=== PATIENT | male | born 1995 | race Caucasian/White ===

== ENCOUNTER 2019-06-29 17:04 | Emergency (ER) | payer BC, SELFPAY ==
[2019-06-29 16:55] VITALS: BP 143/125; PULSE 123; RESP 26; TEMP 36.8; O2SAT 99
--- NOTE | 2019-06-29 17:02 | ED.GENADULT ---
HPI - General Adult General Chief complaint: Seizure Stated complaint: SZ, confusion Source: family and EMS Mode of arrival: EMS Limitations: clinical condition History of Present Illness HPI narrative: Patient is a 23-year-old male with a history of seizure disorder, taking carbamazepine, Keppra, clonazepam as needed who presents for evaluation of agitation and aggression. Police Department, EMS were called to patient's father's house work he is currently residing, for aggressive outburst. Per father, reported to EMS that this is how the patient's seizure activity manifest itself, including the postictal state where he is very aggressive. No tonic-clonic activity, loss of consciousness witnessed by family. At the time of arrival for EMS, patient was aggressive, destroying property at his father's house, patient required intramuscular Versed and Haldol for agitation for safety of EMS for transport. Patient at the time of arrival is oriented to person and place and to time. He is awake and alert. Patient is not confused, he is tearful. He denies any head, chest or abdominal pain. Per mom, she states that she does not believe he has missed any of his seizure medications. He is typically seen at [facility] for his seizure issues. He has a history of psychiatric disorder which they believe also influences his seizures. This is very typical of his aggressive outbursts. No recent illnesses. No recent cough, cold, fevers. Patient does have a history of intermittent drug use including methamphetamine use. Related Data Allergies Allergy/AdvReac Type Severity Reaction Status Date / Time clonazepam Allergy Mild Verified 03/10/09 19:04 Review of Systems Review of Systems: Narrative: CONSTITUTIONAL: Denies fever, chills, or sweats. EYES: Denies visual changes, redness, or discharge. ENT: Denies rhinorrhea, congestion, sore throat, or otalgia. CARDIOVASCULAR: Denies chest pain, palpitations, or edema. RESPIRATORY: Denies cough or dyspnea. GASTROINTESTINAL: Denies abdominal pain, nausea, vomiting, or diarrhea. GENITOURINARY: Denies dysuria or hematuria. SKIN: Denies rash or itching. MUSCULOSKELETAL: Denies back pain, joint pain, or myalgia. NEUROLOGIC: Denies headache, numbness, or weakness. [facility] Past Medical History Medical History (Updated 06/29/19 @ 18:09 by Joy Vences MD) Drug abuse, episodic use Seizure Surgical History Surgical History (Updated 06/29/19 @ 17:16 by Joy Vences MD) No pertinent past surgical history Family History Family History (Updated 06/29/19 @ 17:15 by Joy Vences MD) Father No problems noted. Social History Social History (Updated 06/29/19 @ 17:15 by Joy Vences MD) Smoking status: Current some day smoker Tobacco type: cigarettes and e-cigarettes Alcohol intake: current Substance use: current Substance use type: marijuana and methamphetamine Gender identity (if verbalized by the patient): Male Exam Narrative: Exam Narrative: GENERAL: Awake, alert, tearful HEAD: Normocephalic, atraumatic. EYES: PERRLA and EOMI. ENT: Nares clear, no rhinorrhea or epistaxis. Mucous membranes moist. NECK: Supple. CHEST: No respiratory distress, breathing even and non labored HEART: Tachycardic rate rate, sinus rhythm ABDOMEN:Non distended, non tender EXTREMITIES: Normal range of motion. No edema. SKIN: Warm, dry, no rash. NEURO:No focal deficits. Alert and oriented x3. Finger to nose intact bilaterally. EOMs intact without nystagmus. No facial droop/asymmetry noted bilaterally. Grimace intact. Intact sensation in face. Hearing intact bilaterally. Shoulder shrug intact. Strength 5/5 bilateral upper extremities. Strength 5/5 bilateral lower extremities. Reflexes 2+ patellar. Heel to arguello intact bilaterally. Ambulatory with a narrow base, steady gait, no ataxia. Course Course Emergency Course: Patient is a 23-year-old with a history of seizure disorder, on car
[2019-06-29 17:12] VITALS: PULSE 123
[2019-06-29] MEDS: MIDAZOLAM HCL 2 MG/2 ML VIAL IM (17:15)
--- NOTE | 2019-06-29 18:01 | PC.NURSE ---
1655 Pt. arrived to removed via EMS 1700 handcuffs removed 1705 Pt. continues to get out of bed, wanting to leave, Pt. is agitated, clinching jaw and flexing upper body. Pt. redirected to sit back in bed by staff 1710 Pt. given 2mg IM versed in their left deltoid per verbal order readback from EDP. 1715 room modified for Pt. safety, sitter initiated. 1730 Pt. still agitated, getting out of bed, redirected by staff 1745 family refusing blood work and treatment. Pt. currently AOx4 at this time. EDP notified 1750 EDP ok with Pt. signing AMA, EDP talked with Pt. and made aware of all risks for leaving 1602 Pt. signs out AMA and ambulated out of ED with their belongings with mother. Pt. continues to deny any homicidal or suicidal ideation.
[2019-06-29 18:02] VITALS: BP 143/90; PULSE 112; RESP 22; O2SAT 99
== END 2019-06-29 18:02 | disposition left against medical advice (07) ==
PROVIDERS: Emergency Provider Emergency Medicine
DX: R45.6 Violent behavior (principal); F17.210 Nicotine dependence, cigarettes, uncomplicated
CPT/HCPCS: 96372; 99283; J1630; J2250

== ENCOUNTER 2019-08-23 10:42 | Observation (INO) | payer BC, SELFPAY ==
[2019-08-23] VITALS (10 sets, daily range): BP systolic 113–144; BP diastolic 59–111; PULSE 71–135; RESP 18–28; TEMP 36.1–37.4; O2SAT 93–100; BMI 23.1
--- NOTE | ~2019-08-23 | XR_ITS ---
EXAMINATION: XR chest 1V portable 08/23/2019 11:08 INDICATION: Seizure. Fever. PROCEDURE: AP portable chest COMPARISON: No prior studies for comparison. FINDINGS: The lungs are clear. The cardiomediastinal silhouette is within normal limits. There are no pleural effusions. There is no pneumothorax suspected. IMPRESSION: 1: NO ACUTE CARDIOPULMONARY DISEASE. Reviewed, dictated and finalized at location A.
--- NOTE | ~2019-08-23 | CT_ITS ---
EXAMINATION: CT brain wo con DATE: 08/23/2019 11:35 INDICATION: Epilepsy. Seizure. TECHNIQUE: Computed tomography (CT) of the head was performed without intravenous contrast. Sagittal and coronal reconstructions were performed. The mA was adjusted according to patient size. Iterative reconstruction technique was employed. The dose-length product was 605.33 mGy-cm. COMPARISON: head CT dated 09/28/2014 FINDINGS: No acute intracranial hemorrhage, acute infarction or abnormal extra axial fluid collection. Ventricl es are normal and symmetric. No mass/mass effect. The orbits, paranasal sinuses and mastoid air cells are normal. IMPRESSION: 1. Normal brain. No acute intracranial process. Reviewed, dictated and finalized at location A.
--- NOTE | 2019-08-23 10:55 | ED.SEIZURE ---
HPI - Seizure General Chief Complaint: Seizure Stated Complaint: . Time Seen by Provider: 08/23/19 10:45 Source: RN notes reviewed History of Present Illness HPI Narrative: Patient presents emergency department from home by private vehicle for seizure. Patient presents in tonic-clonic seizure. Per the patient's father who dropped him off patient with history of seizures was given his rescue medication with minimal relief. States the patient has been seizing for approximately 30 minutes. Per the father he is unsure of the patient's regular medications But does state the patient has been taking his medications as prescribed Review of Systems Review of Systems: ROS unobtainable: Yes unobtainable due to medical condition (Recurrent seizing) PMFSH Past Medical History Medical History Drug abuse, episodic use Seizure Surgical History Surgical History (Updated 06/29/19 @ 17:16 by Joy Vences MD) No pertinent past surgical history Family History Family History (Updated 06/29/19 @ 17:15 by Joy Vences MD) Father No problems noted. Social History Social History Smoking status: Current some day smoker Tobacco type: cigarettes and e-cigarettes/vaping Alcohol intake: current Substance use: current Substance use type: marijuana and methamphetamine Gender identity (if verbalized by the patient): Male Exam Narrative: Exam Narrative: General: Currently seizing in bed with tonic-clonic activity EYES: PERRL HEENT: Normocephalic, atraumatic, OMM RESPIRATORY: No respiratory distress Clear to auscultation bilaterally with no rhonchi wheezing or rales. CARDIOVASCULAR: Tachycardic and regular without murmurs rubs or gallops. ABDOMINAL: Soft, nontender, nondistended, no rebound or guarding MUSCULOSKELETAl: No clubbing, cyanosis or edema. NEURO: Currently with seizure activity SKIN:: Warm, dry. No rashes lesions or abrasions Course Course Emergency Course: Patient given Ativan 2 mg in the ED with improvement of seizure activity Called and discussed with Dr. nicolas presentation work-up. At this time recommends patient loaded with 1 g of Keppra Patient's mother is now present. States patient is on Keppra 1500 mg twice daily Patient is becoming more awake currently not answering questions but is able to follow simple commands and will mumble to questions Discussed Dr. Williamson presentation work-up agrees with consult at this time with patient remain on his Keppra 1500 mg twice daily Cussed with Dr. Toney presentation work-up. Agrees with admission at this time Discussed with patient and family results of workup and diagnosis. Discussed need for admission. Patient and family understand and agree to current treatment plan Patient is now more awake and alert currently ANO x3. He denies any pain at this time states he has been taking medications as prescribed Vital Signs Vital signs: Vital Signs Pulse Rate 135 H 08/23/19 10:56 Respiratory Rate 28 H 08/23/19 10:56 Blood Pressure 144/111 H 08/23/19 10:56 Pulse Oximetry 96 08/23/19 10:56 Pulse Rate 116 H 08/23/19 10:58 Respiratory Rate 21 H 08/23/19 10:58 Blood Pressure 144/111 H 08/23/19 10:58 Pulse Oximetry 93 08/23/19 10:58 MDM - Seizure Lab Data Result diagrams: 08/23/19 11:21 08/23/19 11:21 Labs: Lab Results 08/23/19 08/23/19 08/23/19 Range/Units 11:21 11:21 11:21 WBC 5.2 (4.5-10.0) K/mm3 RBC 4.61 (4.6-6.20) M/mm3 Hgb 14.0 (14.0-18.0) g/dL Hct 42.1 (42.0-52.0) % MCV 91.3 (80-100) fl MCH 30.4 (26-34) pg MCHC 33.3 (32-36) g/dl RDW 12.8 (11.5-14.5) % Plt Count 205 (150-375) k/mm3 MPV 10.2 (7.4-10.4) fl Immature Gran % (Auto) 1.5 H (0-0.5) % Neut % (Auto) 68.6 (45.5-73.1) % Lymph % (Auto) 21.8 (18.3-44.2) % Mo
[2019-08-23] MEDS: levETIRAcetam 1000MG/NACL100ML 1,000 MG/100 ML BAG 400 MG IVPB (10:56)
[2019-08-23] MEDS: SODIUM CHLORIDE 0.9% IV 1,000 ML 999 ML IV CONT (10:56)
--- NOTE | 2019-08-23 11:26 | ECG_ITS ---
Measurements Intervals [place] Rate: 120 P: 58 KS: 158 QRS: 64 QRSD: 102 T: 59 QT: 319 QTc: 451 Interpretive Statements SINUS TACHYCARDIA INCOMPLETE RIGHT BUNDLE BRANCH BLOCK ABNORMAL ECG Electronically Signed On 08-23-2019 11:44:46 CDT by Sean Harper D.O.
[2019-08-23 11:28] LABS: Basophils Percent Auto 0.6 % (0.2-1.2); Eosinophils Percent Auto 0.6 % (0-4.4); Hematocrit 42.1 % (42.0-52.0); Immature Granulocyte Absolute 0.08 K/mm3 (0.00-0.031); Immature Granulocyte Percent A 1.5 % (0-0.5); Lymphocytes Absolute Auto 1.13 K/mm3 (0.9-3.2); Lymphocytes Percent Auto 21.8 % (18.3-44.2); Mean Corpuscular HGB Conc 33.3 g/dl (32-36); Mean Corpuscular Hemoglobin 30.4 pg (26-34); Mean Corpuscular Volume 91.3 fl (80-100); Mean Platelet Volume 10.2 fl (7.4-10.4); Monocytes Absolute Auto 0.4 K/mm3 (0.1-0.6); Monocytes Percent Auto 6.9 % (2.6-8.5); Neutrophils Absolute Auto 3.6 K/mm3 (1.3-6.7); Neutrophils Percent Auto 68.6 % (45.5-73.1); Platelet Count Result 205 k/mm3 (150-375); Red Blood Count 4.61 M/mm3 (4.6-6.20); Red Cell Distribution Width 12.8 % (11.5-14.5); White Blood Count 5.2 K/mm3 (4.5-10.0)
--- NOTE | 2019-08-23 11:33 | PC.NURSE ---
pt to CT at this time
[2019-08-23 11:40] LABS: Alanine Aminotransferase 16 U/L (4-50); Albumin Level 4.1 g/dL (3.5-5.1); Alkaline Phosphatase 94 U/L (38-126); Aspartate Amino Transferase 22 U/L (17-59); Bilirubin,Total < 0.1 mg/dL (0.2-1.3); Blood Urea Nitrogen 11 mg/dL (9-20); Calcium 8.4 mg/dL (8.4-10.2); Carbon Dioxide 23 mmol/L (22-30); Chloride 103 mmol/L (98-107); Creatine Kinase 92 U/L (55-170); Estimated Glomerular Filt Rate > 60; Ethanol < 10 mg/dL (<10); Glucose 149 mg/dL (75-110); Potassium 3.6 mmol/L (3.4-5.0); Sodium 138 mmol/L (137-145)
[2019-08-23 12:09] LABS: Add Urine Microscopic? YES; Appearance Urine Clear (Clear); Bilirubin Urine Negative (Negative); Blood Urine Negative (Negative); Color Urine Straw (Yellow); Glucose Urine UA Negative (Negative); Ketones Urine Negative (Negative); Leukocyte Esterase Ur Negative LEU/UL (Negative); Mucus Urine Rare /lpf; Nitrate Urine Negative (Negative); Protein Urine 1+ mg/dL (Negative); RBC Urine 0-2 /hpf (0-2); Specific Grav Ur 1.015 (1.001-1.035); Urobilinogen Urine Negative mg/dL (<2.0); WBC Urine 0-3 /hpf
[2019-08-23 12:27] LABS: Amphetamine Screen Urine Negative (Negative); Barbiturate Screen Urine Negative (Negative); Benzodiazepines Screen Urine Negative (Negative); Cannabinoid Screen Urine Positive (Negative); Cocaine Screen Urine Negative (Negative); Methadone Screen Urine Negative (Negative); Opiate Screen Urine Negative (Negative); Phencyclidine Screen Urine Negative (Negative)
--- NOTE | 2019-08-23 13:44 | ADMGEN ---
This patient, Ganesh Spence, was admitted to IMU Room 207-01. Patient/family oriented to hospital policies and general routines including ID bracelet, bed and alarms, visiting hours, pain management, procedures, bathroom and other care routines, personal items, smoking policy, room service/diet, and visiting hours. Valuables list has been completed. Information on how to activate the Rapid Response Team has been discussed. Patient/Family are encouraged to report perceived risks to care and to ask questions if they do not understand what they are told or what they should do.
[2019-08-23] MEDS: SODIUM CHLORIDE 0.9% IV 1,000 ML 125 ML IV CONT ×2 (14:35→21:20)
--- NOTE | 2019-08-23 17:51 | PM.IMHP ---
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 The patient tells me that he has been taking his seizure medicine without difficulty but then his been drinking 2-3 mixed drinks every day after work. 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 The patient came to the emergency room with a tonic-clonic seizure. The father had dropped him off in the emergency room. Patient sees for about 30 minutes. Patient was given IV bolus fluid and Keppra IV. Neurology has been consulted. CT of the head was read as normal brain no acute intracranial process. He was positive for cannabis. Date of service 08/23/2019 Review of Systems Review of Systems: All systems reviewed & are unremarkable except as noted in HPI and below Constitutional: Constitutional: Reports as per HPI and Reports no additional constitutional complaints Eyes: Eyes: Reports as per HPI and Reports no additional eye complaints ENT: Reports system reviewed and no additional complaints, except as documented and Reports Normal hearing present Cardiovascular: Cardiovascular: Reports no additional cardiovascular complaints Respiratory: Respiratory: Reports no additional respiratory complaints and Reports no additional respiratory complaints Gastrointestinal: Gastrointestinal: Reports as per HPI and Reports no additional gastrointestinal complaints Musculoskeletal: Musculoskeletal: Reports no additional musculoskeletal complaints Integumentary/Breasts: Skin/Breast: Reports system reviewed and no additional complaints, except as docu and Reports as per HPI Neurologic: Reports system reviewed and no additional complaints, except as documented, Reports as per HPI and Reports Normal hearing present Psychiatric: Psychiatric: Reports no additional psychiatric complaints and Reports as per HPI Endocrine: Endocrine: Reports no additional endocrine complaints Hematologic/Lymphatic: Hematologic/Lymphatic: Reports no additional hematologic/lymphatic complaints Allergic/Immunologic: Allergic/Immunologic: Reports no additional allergic/immunologic complaints [facility] Past Medical History Medical History (Updated 08/23/19 @ 17:58 by Mary Lou Bradshaw NP) Drug abuse, episodic use Positive for cannabis and use meth 1 month ago Seizure Surgical History Surgical History (Updated 06/29/19 @ 17:16 by Joy Vences MD) No pertinent past surgical history Family History Family History Father No problems noted. Social History Social History (Updated 08/23/19 @ 18:01 by Mary Lou Bradshaw NP) Social History: The patient lives with his mom. He has no children he is single. 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 He is a full code. He stated he last used meth about a month ago. He has 2-3 alcoholic drinks every day after work. Tobacco type: cigarettes Alcohol intake: current Drinks per week: 12 Substance use: current Substance use type: marijuana Other substance usage details: smokes a couple of times a week Last use: 08/22/2019 Gender identity (if verbalized by the patient): Male Spiritual care concerns: No Meds Home Medications and Allergies Home Medications Medication Instructions Recorded Confirmed Type carbamazepine [Tegretol] 400 mg PO Q12H 08/23/19 08/23/19 History levetiracetam [Keppra] 1,250 mg PO BID 08/23/19 08/23/19 History oxcarbazepine 600 mg PO BID 08/23/19 08/23/19 History Allergies Allergy/AdvReac Type Severity Reaction Status Date / Time No Known Allergies Allergy Verified 08/23/19 13:54 Vital Signs Vital Signs - 24 hr 08/23/19 10:56 08/23/19 10:58 08/23/19
[2019-08-23] MEDS: carBAMazepine 200 MG TABLET 400 MG PO (21:19)
[2019-08-23] MEDS: levETIRAcetam 1500MG/NACL100ML 1,500 MG/100 ML BAG 400 MG IVPB (21:20)
[2019-08-23] MEDS: OXcarbazepine 300 MG TABLET 600 MG PO (21:20)
[2019-08-24] VITALS: PULSE 76
[2019-08-24 02:00] VITALS: PULSE 73
[2019-08-24 04:00] VITALS: BP 110/68; PULSE 69; RESP 18; TEMP 36.6; O2SAT 99
[2019-08-24 05:00] LABS: Basophils Percent Auto 0.3 % (0.2-1.2); Eosinophils Absolute Auto 0.1 K/mm3 (0-0.3); Eosinophils Percent Auto 0.5 % (0-4.4); Hematocrit 40.4 % (42.0-52.0); Hemoglobin 13.4 g/dL (14.0-18.0); Immature Granulocyte Absolute 0.04 K/mm3 (0.00-0.031); Immature Granulocyte Percent A 0.4 % (0-0.5); Lymphocytes Absolute Auto 1.75 K/mm3 (0.9-3.2); Lymphocytes Percent Auto 17.7 % (18.3-44.2); Mean Corpuscular HGB Conc 33.2 g/dl (32-36); Mean Corpuscular Hemoglobin 30.2 pg (26-34); Mean Corpuscular Volume 91.2 fl (80-100); Monocytes Absolute Auto 0.6 K/mm3 (0.1-0.6); Monocytes Percent Auto 6.5 % (2.6-8.5); Neutrophils Absolute Auto 7.4 K/mm3 (1.3-6.7); Neutrophils Percent Auto 74.6 % (45.5-73.1); Platelet Count Result 205 k/mm3 (150-375); Red Blood Count 4.43 M/mm3 (4.6-6.20); Red Cell Distribution Width 12.6 % (11.5-14.5); White Blood Count 9.9 K/mm3 (4.5-10.0)
[2019-08-24 05:17] LABS: Blood Urea Nitrogen 8 mg/dL (9-20); Carbon Dioxide 30 mmol/L (22-30); Chloride 106 mmol/L (98-107); Estimated CRCL calculation 125 ml/min; Estimated Glomerular Filt Rate > 60; Glucose 93 mg/dL (75-110); Potassium 3.8 mmol/L (3.4-5.0); Sodium 136 mmol/L (137-145)
[2019-08-24 05:58] VITALS: PULSE 77
[2019-08-24] MEDS: SODIUM CHLORIDE 0.9% IV 1,000 ML 125 ML IV CONT (06:19)
[2019-08-24 08:00] VITALS: PULSE 57
[2019-08-24] MEDS: levETIRAcetam 1500MG/NACL100ML 1,500 MG/100 ML BAG 400 MG IVPB (08:20)
[2019-08-24] MEDS: OXcarbazepine 300 MG TABLET 600 MG PO (08:21)
[2019-08-24] MEDS: carBAMazepine 200 MG TABLET 400 MG PO (08:22)
[2019-08-24 08:30] VITALS: BP 116/50; PULSE 68; RESP 18; TEMP 36.3; O2SAT 100
--- NOTE | 2019-08-24 09:14 | PM.DS ---
DS: Admitting Diagnosis Admitting Diagnosis Admitting Diagnosis: Epilepsy, unspecified, not intractable, with status epilepticus DS: Discharge Diagnosis Discharge Diagnosis (1) Status epilepticus: Code(s): G40.901 - Epilepsy, unspecified, not intractable, with status epilepticus Status: Acute Assessment and Plan: Patient was brought in after having a reported 30 minutes seizure. Patient has a history of seizures since he was 3 years old after a traumatic brain injury. He reports taking 4 medications twice daily for his seizures He used to see Dr. Strickland neurologist, but for the last few months he has been seen a specialist at [place] who has been making adjustments to his medications and is considering him for a brain surgery. I called Dr. Williamson neurologist to his going to consult on the patient and informed him of the patient. He states if the patient is seizure free, back to his baseline, and since he is on 4 different anti seizure medications he will not make any adjustments. Dr. Williamson recommended him following up with his neurologist at [place] within 7-10 days for further evaluation and to see if further adjustments are needed at that time. I explained this to the patient and he will call his neurologist after discharge for a follow-up within 7-10 days. At this time I feel the patient is stable for discharge. Patient understands and agrees with the plan all questions answered. The nurse called his pharmacy [facility], because the patient states he has been taking 4 medications twice a day. The pharmacist states his medications in our computer are correct. He is supposed to be on Tegretol 400 p.o. q.12, Keppra 1000 mg b.i.d., oxcarbazepine 600 p.o. b.i.d.. The pharmacist states that he last filled his Tegretol in July 2019 but his other medications have not been feeling since March 2019. I will refill his medications in our computer so he has another 30 day prescription. Explained to him the importance of taking his medications as prescribed and following up with his neurologist after discharge. (2) Drug abuse, episodic use: Code(s): F19.10 - Other psychoactive substance abuse, uncomplicated Status: Acute Assessment and Plan: Patient stated he last used meth 1 month. Patient was positive for marijuana. Educated the patient to stop using illegal drugs and drinking alcohol which can cause issues with his seizures. Patient states he understands. DS: Summary Hospital Course Reason for hospitalization: Patient is a 24-year-old man with history of traumatic brain injury at 3 years old which resulted in seizures, who presented to the emergency department after having a seizure. 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 Patient's father reported a possible 30 minutes seizure and was brought to the emergency department. His initial vital signs showed him to be tachycardic at 135 bpm, elevated blood pressure 144/111, increased respiratory rate 28, afebrile with normal oxygenation. Initial labs showed, normal CBC with differential, normal coag panel, normal CMP, normal urinalysis, and urine toxicology screen showed positive for cannabis. Chest x-ray showed no acute cardiopulmonary disease. CT brain showed normal brain with no acute abnormality. Patient was observed overnight with seizure precautions. He did not have any more breakthrough seizures. He was started on IV Keppra. He is feeling well at this time and was going to leave against medical advice. I evaluated the patient and he is alert oriented x4, able to make his own decisions and is feeling back to his baseline. I talked to Dr. Williamson neurology who states that he was not going to make any adjustments to his home medications and just evaluate overnight for breakthrough seizures. Plan is for the patient
== END 2019-08-24 09:37 | disposition home or self-care (01) ==
LOC: ANHED 12:05 → ANHIMU 12:30
PROVIDERS: Admitting Provider Hospitalist; Emergency Provider Emergency Medicine; PCP Psychiatry & Neurology Neurology; Visit Provider Family Medicine
DX: G40.901 Epilepsy, unspecified, not intractable, with status epilepticus (principal); F19.10 Other psychoactive substance abuse, uncomplicated; Z87.820 Personal history of traumatic brain injury; F17.210 Nicotine dependence, cigarettes, uncomplicated; F12.90 Cannabis use, unspecified, uncomplicated
CPT/HCPCS: 36415; 51701; 70450; 71045; 80048; 80053; 80307; 81001; 82550; 85025; 93005; 96361; 96365; 96366; 96376; 99285; A9270; G0378; J1953; J7030

== ENCOUNTER 2023-04-06 23:00 | Emergency (ER) | payer OTHER, SELFPAY ==
--- NOTE | ~2023-04-06 | CT_ITS ---
Non-contrast Head CT History: Headache COMPARISON: 08/23/2019 Technique: Axial non-contrast imaging of the brain was performed. Dose reduction technique was used on this scan by utilizing automated exposure control and iterative reconstruction technique. The dose -length product (DLP) was 681.00 mGy-cm. Findings: There is no evidence of intracranial hemorrhage, mass lesion, or acute infarct. There is p ostoperative encephalomalacia in the anterior left temporal lobe with associated left temporal cranio alexander. The ventricles and subarachnoid spaces are otherwise normal in size. The calvarium appears nor mal. The visualized paranasal sinuses and mastoid air cells are clear. Impression: No acute abnormality. Suspected postoperative encephalomalacia of the anterior left temporal lobe with overlying left tempo ral craniotomy. Correlate with surgical history. Reviewed, dictated and finalized at [facility]. [facility] Impression: No acute abnormality. Suspected postoperative encephalomalacia of the anterior left temporal lobe wit h overlying left temporal craniotomy. Correlate with surgical history.
[2023-04-06 23:02] VITALS: BP 165/84; PULSE 100; RESP 22; TEMP 36.4; O2SAT 100
--- NOTE | 2023-04-06 23:42 | PC.NURSE ---
Pt to CT at this time.
--- NOTE | 2023-04-06 23:50 | ED.GENADULT ---
HPI - General Adult General Chief complaint: Headache Stated complaint: headache, left side of head Time Seen by Provider: 04/06/23 23:08 History of Present Illness HPI narrative: Patient is a 27-year-old gentleman who presents to the emergency department with chief complaint of headache. The patient reports that he has prior history of a seizure disorder and had surgery on his brain several years ago for his seizures. The patient reports that he has had some headaches since then and reports that about 5 hours ago he started having pain on the left side of his head patient reports that this is 1 of the worst headaches he has had in his life but not the worst headache patient reports that the light does bother his eyes reports he had a little bit of nausea with this. The patient denies focal neurological deficit Related Data Allergies Allergy/AdvReac Type Severity Reaction Status Date / Time No Known Allergies Allergy Verified 04/06/23 23:55 Review of Systems Review of Systems: A 10 system review of systems was completed on the patient and is negative except for what is stated in the HPI. Nursing and ancillary documentation was reviewed. [facility] Past Medical History Medical History Drug abuse, episodic use Positive for cannabis and use meth 1 month ago Seizure Surgical History Surgical History No pertinent past surgical history Family History Family History Father No problems noted. Social History Social History Social History: The patient lives with his mom. He has no children he is single. 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 He is a full code. He stated he last used meth about a month ago. He has 2-3 alcoholic drinks every day after work. Tobacco type: cigarettes Alcohol intake: current Drinks per week: 12 Substance use: current Substance use type: marijuana Other substance usage details: smokes a couple of times a week Last use: 08/22/2019 Living arrangements: with family Gender identity (if verbalized by the patient): Male Spiritual care concerns: No Exam Narrative: GENERAL: Well-appearing, well-nourished, and in no acute distress. HEAD: Normocephalic, atraumatic. EYES: PERRLA and EOMI. ENT: Nares clear, no rhinorrhea or epistaxis. Mucous membranes moist. NECK: Supple. CHEST: Clear to auscultation. No respiratory distress. HEART: Regular rate and rhythm. No murmur heard. Normal peripheral pulses. ABDOMEN: Soft, nontender, nondistended, normal active bowel sounds. EXTREMITIES: Normal range of motion. No edema. SKIN: Warm, dry, no rash. NEURO: No focal deficits. Alert and oriented x3. PSYCH: Normal mood and affect. Course Vital Signs Vital signs: Vital Signs Temperature 36.4 C 04/06/23 23:02 Pulse Rate 100 04/06/23 23:02 Respiratory Rate 22 H 04/06/23 23:02 Blood Pressure 165/84 H 04/06/23 23:02 Pulse Oximetry 100 04/06/23 23:02 Oxygen Delivery Room Air 04/06/23 23:02 Temperature 36.4 C 04/06/23 23:02 Pulse Rate 100 04/06/23 23:02 Respiratory Rate 22 H 04/06/23 23:02 Blood Pressure 165/84 H 04/06/23 23:02 Pulse Oximetry 100 04/06/23 23:02 Oxygen Delivery Room Air 04/06/23 23:02 Medical Decision Making [facility] Narrative Medical decision making narrative: Differential diagnosis includes intracranial pathology, migraine headache, tension headache CT scan was obtained due to the difference in the normal headaches. This showed no evidence of acute intracranial pathology Patient received typical migraine cocktail and is feeling much better at this time and will be discharged home Vital Signs Vital Signs: V
[2023-04-06] MEDS: diphenhydrAMINE HCl INJ 50 MG/ML VIAL IV PUSH (23:54)
[2023-04-06] MEDS: SODIUM CHLORIDE 0.9% IV 1,000 ML 999 ML IV CONT (23:54)
[2023-04-06] MEDS: METOCLOPRAMIDE HCL INJ 10 MG/2 ML VIAL IV PUSH (23:54)
[2023-04-07 00:24] VITALS: BP 115/62; PULSE 79; RESP 16; O2SAT 100
== END 2023-04-07 00:33 | disposition home or self-care (01) ==
LOC: ANHED 04-07 00:23
PROVIDERS: Emergency Provider Emergency Medicine
DX: R51.9 Headache, unspecified (principal)
CPT/HCPCS: 70450; 96361; 96374; 96375; 99284; J1100; J1200; J2765; J7030

== ENCOUNTER 2023-10-31 16:41 | Emergency (ER) | payer OTHER, SELFPAY ==
[2023-10-31] VITALS (53 sets, daily range): BP systolic 122–182; BP diastolic 68–114; PULSE 89–159; RESP 12–32; TEMP 37–39; O2SAT 68–100
--- NOTE | ~2023-10-31 | XR_ITS ---
XR chest ET placement Ordering provider: Rigoberto Berg MD History: 28 years Male with . SEIZURE ACTIVITY . Comparison: August 26, 2019 FINDINGS: MEDIASTINUM: The cardiac silhouette is slightly enlarged. Endotracheal tube is seen with the tip abov e the kirsty by about 4 cm. Nasogastric tube is seen. Slightly congestive cheikh. LUNGS: No infiltrates, effusions or pneumothorax. OTHER: No free air under the diaphragm. IMPRESSION: Slight cardiomegaly No definite acute cardiopulmonary pathology. Reviewed, dictated and finalized at location A.
--- NOTE | ~2023-10-31 | CT_ITS ---
EXAMINATION: CT brain wo con DATE: 10/31/2023 18:35 INDICATION: Seizure TECHNIQUE: Computed tomography (CT) of the head was performed without intravenous contrast. Sagittal and coronal reconstructions were performed. The mA was adjusted according to patient size. Iterative reconstruction technique was employed. The dose-length product was 605.33 mGy-cm. COMPARISON: head CT dated 04/06/2023 FINDINGS: Again seen is a region of encephalomalacia in the anterior left temporal lobe likely related to prior surgery with overlying left temporal craniotomy. No acute intracranial hemorrhage, acute infarction or abnormal extra axial fluid collection. Ventricles are normal and symmetric. No mass/mass effect. C hanges of bilateral intraocular lens replacement. The orbits, paranasal sinuses and mastoid air cells are normal. IMPRESSION: 1. 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 Correlate with surgical history. 2. Otherwise unremarkable head CT with no acute intracranial process. Reviewed, dictated and finalized at location A. IMPRESSION: 1. Anterior left temporal lobe encephalomalacia with overlying craniotomy sugge sting sequela prior surgery. Correlate with surgical history. 2. Otherwise unremarkable head CT with no acute intracranial process.
--- NOTE | ~2023-10-31 | XR_ITS ---
XR abdomen gastric tube insert Ordering provider: Rigoberto Berg MD History: . SEIZURE ACTIVITY . Comparison: None. FINDINGS/impression: BOWEL: Nasogastric tube is seen in the stomach with the tip near to the duodenum Reviewed, dictated and finalized at location A.
--- NOTE | 2023-10-31 16:39 | ED.GENADULT ---
[facility] - General Adult General Chief complaint: Seizure Stated complaint: SEIZURE Source: family and EMS Mode of arrival: EMS Limitations: clinical condition History of Present Illness HPI narrative: this is a 28-year-old male who presents to the ED via EMS for chief complaint of seizure activity. mother is here with the patient but she did not witness the of seizures. States that he had the history of possible TBI has had seizures in the past. States that he had a neurologic surgery within the last couple years and use taken off of his Keppra last year. He has not had any seizures for over a year. mother states that he had continuous seizure activity for around hours today. It was not specifically noted if he had any periods back to baseline in between. Per EMS they had to give 5 of Valium due to postictal agitation. He continued to be combative so they gave another 5 of Valium. He did not have any seizure-like activity EN route. Related Data Allergies Allergy/AdvReac Type Severity Reaction Status Date / Time No Known Allergies Allergy Verified 04/06/23 23:55 Review of Systems Review of Systems: All systems as dictated in [facility] Past Medical History Medical History Drug abuse, episodic use Positive for cannabis and use meth 1 month ago Seizure Surgical History Surgical History No pertinent past surgical history Family History Family History Father No problems noted. Social History Social History Social History: The patient lives with his mom. He has no children he is single. 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 He does not have a power tax associate attorney for healthcare. He is a full code. He stated he last used meth about a month ago. He has 2-3 alcoholic drinks every day after work. Tobacco type: cigarettes Alcohol intake: current Drinks per week: 12 Substance use: current Substance use type: marijuana Other substance usage details: smokes a couple of times a week Last use: 08/22/2019 Living arrangements: with family Gender identity (if verbalized by the patient): Male Spiritual care concerns: No Exam Narrative: GENERAL: Agitated and screaming. HEAD: Normocephalic, atraumatic. EYES: PERRLA and EOMI. ENT: dried blood covering the lips and teeth Nares clear, no rhinorrhea or epistaxis. Mucous membranes moist. Oropharynx without tonsillar hypertrophy exudate or other lesions. NECK: Supple. No adenopathy or masses. CHEST: No respiratory distress. Clear to auscultation. No wheezes rales or rhonchi HEART: Regular rate and rhythm. No murmur heard. Normal peripheral pulses. ABDOMEN: Soft, nontender, nondistended, normal active bowel sounds. MSK: Normal range of motion. No edema. SKIN: Warm, dry, no rash. NEURO: Alert. Moves all extremities spontaneously. PSYCH: Agitated Course Vital Signs Vital signs: Vital Signs Temperature 100.5 F H 10/31/23 16:34 Pulse Rate 105 H 10/31/23 16:34 Respiratory Rate 32 H 10/31/23 16:34 Blood Pressure 139/94 H 10/31/23 16:34 Pulse Oximetry 86 L 10/31/23 16:34 Oxygen Delivery Room Air 10/31/23 16:34 Temperature 98.6 F 10/31/23 23:22 Pulse Rate 86 11/01/23 00:56 Respiratory Rate 16 11/01/23 00:56 Blood Pressure 132/84 11/01/23 00:56 Pulse Oximetry 100 11/01/23 00:56 Oxygen Delivery Mechanical Ventilation 10/31/23 23:11 Fraction of Inspired Oxygen 30 10/31/23 23:11 Procedures Intubation Intubation #1: Intubation Date: 10/31/23 Intubation Time: 18:09 Time out performed: Yes sedative: Etomidate Mg Given: 20 paralytic: Succinylcholine Mg Given: 100 Laryngoscope: fiber optic
[2023-10-31] MEDS: levETIRAcetam 1000MG/NACL100ML 1,000 MG/100 ML BAG 400 MG IVPB ×4 (16:43→17:33)
[2023-10-31] MEDS: LORazepam INJ (*CRX) 2 MG/ML VIAL IV PUSH (16:43)
--- NOTE | 2023-10-31 17:21 | PC.NURSE ---
Provider back at bedside, pt continues to yell with frequent periods of apnea, pt SpO2 62% with apnea, placed on non-rebreathing but keeps pulling it off. Mom has to hold in front of him. Pt requiring frequent sternal rubbing to have spontaneous breaths. HR fluctuating between 115-160's.
[2023-10-31] MEDS: SODIUM CHLORIDE 0.9% IV 1,000 ML 999 ML IV CONT ×3 (17:30→20:49)
[2023-10-31 17:37] LABS: Basophils Absolute Auto 0.1 K/mm3 (0.0-0.1); Basophils Percent Auto 0.3 % (0.2-1.2); Eosinophils Percent Auto 0.1 % (0-4.4); Hematocrit 42.3 % (42.0-52.0); Hemoglobin 15.1 g/dL (14.0-18.0); Immature Granulocyte Absolute 0.23 K/mm3 (0.00-0.031); Immature Granulocyte Percent A 1.2 % (0-0.5); Lymphocytes Absolute Auto 1.03 K/mm3 (0.9-3.2); Lymphocytes Percent Auto 5.3 % (18.3-44.2); Mean Corpuscular HGB Conc 35.7 g/dl (32-36); Mean Corpuscular Hemoglobin 31.5 pg (26-34); Mean Corpuscular Volume 88.3 fl (80-100); Mean Platelet Volume 10.2 fl (7.4-10.4); Monocytes Absolute Auto 1.7 K/mm3 (0.1-0.6); Monocytes Percent Auto 8.8 % (2.6-8.5); Neutrophils Absolute Auto 16.3 K/mm3 (1.3-6.7); Neutrophils Percent Auto 84.3 % (45.5-73.1); Platelet Count Result 283 k/mm3 (150-375); Red Blood Count 4.79 M/mm3 (4.6-6.20); White Blood Count 19.4 K/mm3 (4.5-10.0)
[2023-10-31 17:47] LABS: Alanine Aminotransferase 29 U/L (6-50); Albumin Level 4.9 g/dL (3.5-5.1); Alkaline Phosphatase 115 U/L (38-126); Anion Gap 16 mmol/L (4-12); Aspartate Amino Transferase 59 U/L (17-59); Bilirubin,Total 0.6 mg/dL (0.2-1.3); Blood Urea Nitrogen 13 mg/dL (9-20); Calcium 9.6 mg/dL (8.4-10.2); Carbon Dioxide 21 mmol/L (22-30); Chloride 103 mmol/L (98-107); Estimated Glomerular Filt Rate > 60; Glucose 128 mg/dL (65-110); Potassium 3.6 mmol/L (3.4-5.0); Sodium 140 mmol/L (137-145)
--- NOTE | 2023-10-31 17:55 | PC.NURSE ---
Pt intubated due to continuous seizure activity and periods of apnea. (See RSI box) Pt was given 6mg Versed prior to intubation at 17:43. Pt given 20 etomidate and 100 succ at 17:46 for intubation. 7.5 tube. MD Berg, JANAE Rascon, RT, and two nurses at bedside. Bilateral breath sounds present, x-ray done. Up catheter and NG tube placed. Will take patient to CT as soon as possible once sedated for safe transport.
[2023-10-31] MEDS: PROPOFOL IV EMULSION 200 MG/20 ML VIAL 100 MG IV PUSH (17:56)
[2023-10-31] MEDS: PROPOFOL IV EMULSION 100 ML 4.79 MG IV CONT (18:06)
--- NOTE | 2023-10-31 18:44 | PC.NURSE ---
Pt returned from CT with RN, PCT, and RT. Placed on vent. Requiring frequent titration for improved sedation.
[2023-10-31 18:55] LABS: Add Urine Microscopic? YES; Appearance Urine Clear (Clear); Bacteria Urine None Seen /hpf; Bilirubin Urine Negative (Negative); Blood Urine 2+ (Negative); Color Urine Yellow (Yellow); Glucose Urine UA 1+ mg/dL (Negative); Hyaline Casts Urine Present /lpf; Ketones Urine Trace mg/dL (Negative); Leukocyte Esterase Ur Negative LEU/UL (Negative); Need Manual Microscopic Reviewed; Nitrate Urine Negative (Negative); Non Pathogenic Casts >20; Protein Urine 2+ mg/dL (Negative); RBC Urine 0-2 /hpf (0-2); Specific Grav Ur 1.015 (1.001-1.035); Squamous Epithelial Cell Urine None Seen /hpf (Few); Urobilinogen Urine 0.2 mg/dL (<2.0); WBC Urine 0-5 /hpf (0-3); pH Urine 5.5 (5.0-9.0)
--- NOTE | 2023-10-31 18:58 | PC.NURSE ---
Per MD Berg, increase propofol drip to 50 mcg/kg/min. See MAR for documented titration. Pupils 4mm, equal and reactive. Pt able to move all extremities well and purposefully. Pt's core temp continues increasing, now 102.2F. Provider made aware. IV fluids continue infusing. Waiting results of head CT and further orders for workup. Mom at bedside. HOB elevated 30 degrees.
[2023-10-31 19:05] LABS: Amphetamine Screen Urine Negative (Negative); Barbiturate Screen Urine Negative (Negative); Benzodiazepines Screen Urine Negative (Negative); Cannabinoid Screen Urine Positive (Negative); Cocaine Screen Urine Negative (Negative); Methadone Screen Urine Negative (Negative); Opiate Screen Urine Negative (Negative); Phencyclidine Screen Urine Negative (Negative)
--- NOTE | 2023-10-31 19:23 | ECG_ITS ---
Test Date: 2023-10-31 19:23:17 Measurements Intervals [place] Rate: 104 P: 52 NM: 148 QRS: 48 QRSD: 103 T: 48 QT: 327 QTc: 431 Interpretive Statements SINUS TACHYCARDIA ABNORMAL RHYTHM ECG No previous ECG available for comparison Electronically Signed On 11-01-2023 09:28:32 CDT by Price Gordon M.D.
[2023-10-31 19:30] LABS: Lactic Acid Reflex 2.2 mmol/L (0.7-2.0)
[2023-10-31] MEDS: FENTANYL 2,500MCG/NS250ML(*CRX 2,500 MCG/250 ML BAG 10 MCG IV CONT (19:31)
[2023-10-31] MEDS: fentaNYL CITRATE INJ (*CRX) 100 MCG/2 ML VIAL IV PUSH (19:31)
[2023-10-31 20:42] LABS: Alveolar/Arterial O2 Gradient 42.2 mmHg; Base Excess ABG -9.9 mEq/l (+/-2.0); Carboxyhemoglobin 0.3 % THb (0-2.0); Fractional Inspired Oxygen 30 %; HCO3 ABG 19.5 mEq/l (22.0-26.0); Methemoglobin ABG 0.5 %THb (0-1.5); Oxygen Content ABG 18.7 %vol (16.0-22.0); Oxygen Saturation ABG 95.9 % (95.0-100.0); PO2 ABG 103.6 mmHg (80.0-100.0); PO2 FiO2 Ratio Arterial Blood 3.45 %; Reduced Hemoglobin 3.2 %THb (0-5.0); Total Hemoglobin 13.8 g/dL (12.0-18.0)
[2023-10-31 20:45] LABS: Device VENTILATOR; Modified Allen's Test Pass; Site Drawn RIGHT RADIAL; pH ABG 7.145 (7.350-7.450)
[2023-10-31 20:46] LABS: Arterial Blood Gas PEEP 5 cmH2O; Arterial Blood Gas Tidal Volume 400 ml; Arterial Blood Gas Vent Mode CMV; Arterial Blood Gas Ventilator rate 14 /MIN
[2023-10-31] MEDS: levETIRAcetam 500MG/NACL 100ML 500 MG/100 ML BAG 400 MG IVPB (20:49)
[2023-10-31 20:56] LABS: Glucose CSF 105 mg/dL (40-70); Total Protein CSF 78 mg/dL (12-60)
[2023-10-31] MEDS: dexAMETHasone SOD PHOS INJ 10 MG/ML 1 ML VIAL IV PUSH (21:05)
[2023-10-31 21:06] LABS: Lipase 74 U/L (23-300); Triglycerides 313 mg/dL (<150)
[2023-10-31] MEDS: cefTRIAXone 2 GM/NS 100 ML 2 GM/100 ML BAG IVPB (21:06)
[2023-10-31 21:33] LABS: CSF source CSF
[2023-10-31 21:34] LABS: Appearance CSF Clear (Clear); Color CSF Colorless (Colorless); Lymphocytes CSF 46 % (40-80); Monocytes CSF 43 % (15-45); Neutrophils CSF 11 % (0-6); Nucleated Cell CSF 2 /uL (0-5); Red Blood Cell CSF 57 (0-2)
[2023-10-31] MEDS: ACYCLOVIR SODIUM IVPB 800 MG in DEXTROSE 5% IN WATER 250 ML 266 MG IVPB (21:53)
[2023-10-31 22:16] LABS: Reflex Lactic Acid Yes or No Add Lactic
--- NOTE | 2023-10-31 22:31 | PC.NURSE ---
Spoke with transfer center who states they will call back for placement.
--- NOTE | 2023-10-31 23:00 | PC.NURSE ---
[facility] accepted patient by Dr. Lagunas, bed [id number], call report at [phone].
[2023-11-01 00:42] LABS: Estimated CRCL calculation 67 ml/min; Estimated Glomerular Filt Rate 56
--- NOTE | 2023-11-01 00:49 | PC.NURSE ---
EMS arrived at 0005 for transport to [place]. Awaited respiratory to assist in transfer of vent per EMS request. Patient leaves ER at 0050 without changes in condition.
[2023-11-01 00:52] VITALS: PULSE 86; RESP 16
--- NOTE | 2023-11-01 00:53 | PC.NURSE ---
Propofol and Fentanyl stopped on MAY. Patient was still receiving Propofol 50mcg/min and Fentanyl 100 mcg/min for sedation during transport by EMS.
[2023-11-01 00:55] VITALS: PULSE 86; RESP 16
[2023-11-01 00:55] LABS: Lactic Acid < 0.5 mmol/L (0.7-2.0)
[2023-11-01 00:56] VITALS: BP 132/84; PULSE 86; RESP 16; O2SAT 100
[2023-11-03 15:42] LABS: Lyme Disease Ab (IgM), Blot NEGATIVE (NEGATIVE); Lyme Disease Ab(IgG), Blot NEGATIVE (NEGATIVE)
[2023-11-06 16:24] LABS: Cryptococcus Antigen DETECTED; Cryptococcus Specimen Source CSF
[2023-11-06 19:03] LABS: CSF Cryptococcal Ag Titer Chg YES
[2023-11-06 19:48] LABS: Lyme AB IgG, Immunoblot NO BANDS DETECTED; Lyme AB IgM, Immunoblot NO BANDS DETECTED
[2023-11-11 23:54] LABS: Epstein Barr Virus DNA PCR NOT DETECTED; Source CEREBROSPINAL FLUID; Source Epstein Barr Virus CEREBROSPINAL FLUID; VDRL Quantitative CSF NON-REACTIVE
[2023-11-12 18:43] LABS: Herpes Simplex Type 1 DNA PCR NOT DETECTED; Herpes Simplex Type 2 DNA PCR NOT DETECTED
[2023-11-13 12:33] LABS: Cryptococcus Additional Testin ADDED
[2023-11-18 07:49] LABS: IgG, CSF 3.3
[2023-11-18 07:50] LABS: Immunoglobulin G, Serum 753
[2023-11-18 07:52] LABS: Albumin, CSF 34.1
[2023-11-18 07:54] LABS: Synthesis Rate IgG, CSF -0.2
[2023-11-18 07:55] LABS: IgG Index, CSF 0.52
[2023-11-22 17:48] LABS: Albumin, Serum 4.1 g/dL (3.6-5.1); Myelin Basic Protein, CSF <2.0 mcg/L (< OR = 4.0); Oligoclonal Bands (IgG), CSF ABSENT (ABSENT)
== END 2023-11-01 00:58 | disposition short-term general hospital (02) ==
PROVIDERS: Emergency Provider Physician Assistant
DX: G40.901 Epilepsy, unspecified, not intractable, with status epilepticus (principal); R41.82 Altered mental status, unspecified; F17.210 Nicotine dependence, cigarettes, uncomplicated; R00.0 Tachycardia, unspecified; G93.89 Other specified disorders of brain
CPT/HCPCS: 31500; 36415; 36600; 62270; 70450; 80053; 80307; 81001; 82040; 82042; 82375; 82565; 82784; 82805; 82945; 83050; 83605; 83690; 83873; 83916; 84157; 84478; 85025; 86403; 86592; 86617; 87015; 87040; 87070; 87102; 87116; 87206; 87529; 87798; 89051; 93005; 94002; 96361; 96365; 96366; 96367; 96368; 96375; 99291; J0133; J0330; J0696; J1100; J1953; J2060; J2250; J2704; J3010; J7030; J7060

== ENCOUNTER 2025-01-01 15:46 | Emergency (ER) | payer OTHER, SELFPAY ==
[2025-01-01] VITALS (12 sets, daily range): BP systolic 120–146; BP diastolic 90–99; PULSE 88–133; RESP 12–26; O2SAT 98–100
--- NOTE | 2025-01-01 15:55 | ECG_ITS ---
Test Date: 2025-01-01 16:05:34 Measurements Intervals [place] Rate: 126 P: 11 AK: 167 QRS: 21 QRSD: 101 T: 1 QT: 396 QTc: 573 Interpretive Statements SINUS TACHYCARDIA NONSPECIFIC T-WAVE ABNORMALITY- INFERIOR LEADS BASELINE ARTIFACT- II, III, AVR, AVL, AVF, V1 ABNORMAL ECG Compared to ECG 10/31/2023 19:23:17 HEART RATE HAS INCREASED Electronically Signed On 01-01-2025 18:32:20 CDT by Sean Harper D.O.
--- NOTE | 2025-01-01 16:00 | ED.SEIZURE ---
HPI - Seizure General Chief Complaint: Seizure Stated Complaint: seizure History of Present Illness HPI Narrative: This is a 29-year-old male with history of seizures who presents to the ED for seizures. Per EMS, they were called for patient having seizures for approximately 20 minutes. He apparently had intermittent seizures with multiple postictal periods but did not return to baseline. On their arrival, patient was in his regular postictal period appear significant agitation which is normal for him. He was given 10 mg Valium. Patient reports that he feels like he had a seizure today but does not recall the specific events that led to up to it. Seizure History: Yes Related Data Allergies Allergy/AdvReac Type Severity Reaction Status Date / Time No Known Allergies Allergy Verified 12/22/23 16:26 Review of Systems Review of Systems: Gen.: Denies fevers or chills Eyes: Denies eye pain or visual change ENT: Denies congestion Respiratory: Denies shortness of breath or cough CV: Denies chest pain or palpitations GI: Denies abdominal pain nausea, emesis or diarrhea denies burning, urgency, frequency or hematuria Musculoskeletal: Denies back pain or muscle pain Neuro: Denies numbness, tingling, weakness or focal weakness Skin: Denies rash Except as documented, all other systems reviewed and negative [facility] Past Medical History Medical History Drug abuse, episodic use Positive for cannabis and use meth 1 month ago Seizure Surgical History Surgical History No pertinent past surgical history Family History Family History Father No problems noted. Social History Social History Social History: The patient lives with his mom. He has no children he is single. He works with his dad and [employer]. He does not have a power attorney at law for healthcare. He is a full code. He stated he last used meth about a month ago. He has 2-3 alcoholic drinks every day after work. Tobacco type: cigarettes Alcohol intake: current Drinks per week: 12 Substance use: current Substance use type: marijuana Other substance usage details: smokes a couple of times a week Last use: 08/22/2019 Living arrangements: with family Gender identity (if verbalized by the patient): Male Spiritual care concerns: No Exam Narrative: APPEARANCE: No acute distress, nontoxic, resting in bed EYES: EOMI HEENT: Normocephalic, atraumatic, OMM RESPIRATORY: No respiratory distress Clear to auscultation bilaterally with no rhonchi wheezing or rales. CARDIOVASCULAR: Regular rate and rhythm without murmurs rubs or gallops. ABDOMINAL: Soft, nontender, nondistended, no rebound or guarding MUSCULOSKELETAl: Moves all extremities. No clubbing, cyanosis or edema. NEURO: Awake and alert. Following commands, speech normal, no focal deficits SKIN:: Warm, dry. No rashes lesions or abrasions PSYCHIATRIC: Normal affect/mood, Course Vital Signs Vital signs: Vital Signs Pulse Rate 133 H 01/01/25 15:56 Respiratory Rate 17 01/01/25 15:56 Blood Pressure 146/99 H 01/01/25 15:56 Pulse Oximetry 100 01/01/25 15:56 Oxygen Delivery Room Air 01/01/25 15:56 Pulse Rate 93 01/01/25 18:56 Respiratory Rate 15 01/01/25 18:56 Blood Pressure 137/90 01/01/25 18:56 Pulse Oximetry 100 01/01/25 18:56 Oxygen Delivery Room Air 01/01/25 16:17 MDM - Seizure MDM Narrative Medical decision making narrative: 29-year-old male presenting for seizure activity. On initial evaluation, patient was in no acute distress, afebrile and hemodynamically stable. He was AAO times 4. He had some abrasions to his face. Neurovascularly intact. Heart and lungs clear. He had a leukocytosis of 16. Metabolic acidosis with bicarb less than 5. Glucose was 344. Mild transaminitis. Lactic acid elevated at 18.3. Patient was given 30 cc/kg of fluids. Repeat lactic acid normalized. Patient remained without seizure activity throughout his ED course. He was given 1 g of Keppra. He was advised to continue take his Keppra. He was advised to follow up with his neurologist in the next week for re-evaluation. Patient was agreeable to this plan. Given strict return precautions. Differential Diagnosis Differential diagnosis: Likely intractable seizure disorder, generalized seizure, epileptic seizure and status epilepticus Medical Records Attestation: I reviewed the patient's medical records. Lab Data Attestation: I reviewed the patient's lab results. 01/01/25 16:04 01/01/25 16:04 Labs: Lab Results 01/01/25 01/01/25 Range/Units 16:04 18:26 WBC 16.0 H (4.5-10.0) K/mm3 RBC 4.64 (4.6-6.20) M/mm3 Hgb 15.0 (14.0-18.0) g/dL Hct 44.2 (42.0-52.0) % MCV 95.3 (80-100) fl MCH 32.3 (26-34) pg MCHC 33.9 (32-36) g/dl RDW 12.9 (11.5-14.5) % Plt Count 370 (150-375) k/mm3 MPV 9.9 (7.4-10.4) fl Immature Gran % (Auto) 2.9 H (0-0.5) % Neut % (Auto) 71.9 (45.5-73.1) % Lymph % (Auto) 20.4 (18.3-44.2) % Bryan % (Auto) 3.3 (2.6-8.5) % Eos % (Auto) 0.7 (0-4.4) % Baso % (Auto) 0.8 (0.2-1.2) % Lymph # (Auto) 3.26 H (0.9-3.2) K/mm3 Bryan # (Auto) 0.5 (0.1-0.6) K/mm3 Eos # (Auto) 0.1 (0-0.3) K/mm3 Baso # (Auto) 0.1 (0.0-0.1) K/mm3 Abs Immat Gran (auto) 0.46 H (0.00-0.031) K/mm3 Absolute Neuts (auto) 11.5 H (1.3-6.7) K/mm3 Absolute Nucleated RBC 0.000 (0.0-0.012) K/mm3 Nucleated RBC % 0.0 (0.0-0.2) % Sodium 139 (137-145) mmol/L Potassium 3.3 L (3.4-5.0) mmol/L Chloride 101 (98-107) mmol/L Carbon Dioxide < 5 L (22-30) mmol/L Anion Gap (4-12) mmol/L BUN 8 L D (9-20) mg/dL Creatinine 1.36 H (0.7-1.3) mg/dL Estim Creat Clear Calc 70 ml/min Estimated GFR > 60 (59 - ) Glucose 344 H (65-110) mg/dL Lactic Acid 18.3 H* 1.8 (0.7-2.0) mmol/L Calcium 9.5 (8.4-10.2) mg/dL Total Bilirubin 0.6 (0.2-1.3) mg/dL AST 110 H (17-59) U/L ALT 77 H (6-50) U/L Alkaline Phosphatase 123 (38-126) U/L Total Protein 8.0 (6.3-8.2) g/dL Albumin 4.8 (3.5-5.1) g/dL Salicylates < 1.0 L (2-20) mg/dL Acetaminophen < 10 L (10-30) ug/mL Ethyl Alcohol < 10 (<10) mg/dL ECG Data EKG #1: Attestation: I personally reviewed and interpreted this ECG as follows: ECG completion date: 01/01/25 ECG completion time: 16:05 Interpretation: Sinus tachycardia rate of 126, normal axis, QTC 573, no acute ST or T-wave changes Discharge Plan Discharge Clinical Impression: Status epilepticus, Generalized seizure Patient Disposition: Home Condition: Stable Instructions: Antibiotic Form, Epilepsy (ED) Additional Instructions: Continue to take your Keppra as prescribed. Call your neurologist on Friday to discuss possible changes in her medications or a follow-up appointment. Return to the ED for any new or worsening symptoms. Patient Language: Kinyarwanda Prescriptions: No Action carbamazepine [Tegretol] 200 mg Tablet 400 mg PO Q12H 30 Days Qty: 60 0RF oxcarbazepine 600 mg Tablet 600 mg PO BID 30 Days Qty: 60 0RF levetiracetam [Keppra] 1,000 mg Tablet 1,000 mg PO BID 30 Days Qty: 60 0RF Follow-up/Referrals: UNKNOWN,DOCTOR [Non-Staff]
[2025-01-01] MEDS: levETIRAcetam 1000MG/NACL100ML 1,000 MG/100 ML BAG 400 MG IVPB (16:07)
[2025-01-01 16:11] LABS: Hematocrit 44.2 % (42.0-52.0); Hemoglobin 15.0 g/dL (14.0-18.0); Immature Granulocyte Percent A 2.9 % (0-0.5); Lymphocytes Absolute Auto 3.26 K/mm3 (0.9-3.2); Mean Corpuscular HGB Conc 33.9 g/dl (32-36); Mean Corpuscular Hemoglobin 32.3 pg (26-34); Mean Corpuscular Volume 95.3 fl (80-100); Nucleated Red Blood Cells Absolute Auto 0.000 K/mm3 (0.0-0.012); Nucleated Red Blood Cells Perc 0.0 % (0.0-0.2); Platelet Count Result 370 k/mm3 (150-375); Red Blood Count 4.64 M/mm3 (4.6-6.20); White Blood Count 16.0 K/mm3 (4.5-10.0)
[2025-01-01 16:21] LABS: Alanine Aminotransferase 77 U/L (6-50); Albumin Level 4.8 g/dL (3.5-5.1); Alkaline Phosphatase 123 U/L (38-126); Aspartate Amino Transferase 110 U/L (17-59); Bilirubin,Total 0.6 mg/dL (0.2-1.3); Blood Urea Nitrogen 8 mg/dL (9-20); Calcium 9.5 mg/dL (8.4-10.2); Carbon Dioxide < 5 mmol/L (22-30); Chloride 101 mmol/L (98-107); Estimated CRCL calculation 70 ml/min; Estimated Glomerular Filt Rate > 60; Glucose 344 mg/dL (65-110); Potassium 3.3 mmol/L (3.4-5.0); Sodium 139 mmol/L (137-145); Total Protein 8.0 g/dL (6.3-8.2)
[2025-01-01 16:23] LABS: Acetaminophen < 10 ug/mL (10-30); Salicylate < 1.0 mg/dL (2-20)
[2025-01-01] MEDS: SODIUM CHLORIDE 0.9% IV 1,000 ML 999 ML IV CONT ×2 (17:04→17:05)
[2025-01-01] MEDS: SODIUM CHLORIDE 0.9% IV 200 ML 999 ML IV CONT (17:04)
== END 2025-01-01 18:57 | disposition home or self-care (01) ==
PROVIDERS: Emergency Provider Student in an Organized Health Care Education/Training Program
DX: G40.901 Epilepsy, unspecified, not intractable, with status epilepticus (principal); F17.210 Nicotine dependence, cigarettes, uncomplicated; Z79.899 Other long term (current) drug therapy; R00.0 Tachycardia, unspecified; R94.31 Abnormal electrocardiogram [ECG] [EKG]
CPT/HCPCS: 36415; 80053; 80143; 80179; 82077; 83605; 85025; 93005; 96361; 96374; 99284; J1953; J7030

== ENCOUNTER 2025-01-19 15:53 | Emergency (ER) | payer OTHER, SELFPAY ==
[2025-01-19 15:58] VITALS: BP 151/83; PULSE 80; RESP 18; TEMP 36.7; O2SAT 99
--- NOTE | 2025-01-19 16:59 | PC.NURSE ---
fathere stated that symptoms have resolved, wants to leave
--- OUTSIDE RECORDS SUMMARY | 2025-01-20 15:05 | XMS_ITS | Clinical Summary ---
Author Organization [facility] Address [address] [place] [address] Care Team Providers Care Schedule Clerk Name Role Phone Unavailable Primary Care Provider Unavailabl e Social History Tobacco Use Types Packs/Day Years Used Date Smoking Tobacco: Never Assessed Sex and Gender Information Value Date Recorded Sex Assigned at Not on file Legal Sex Male 6:17 PM CDT Gender Identity Not on file Sexual Orientation Not on file Plan of Treatment Health Maintenance Due Date Last Done Comments Annual Physical 07/24/1999 Hepatitis C 2014 DTaP, Tdap and Td Vaccines ( 1 - Tdap) 07/24/2015 Hepatitis B Vaccines (1 of 3 - 19+ 3-dose series) 07/24/2015 HPV Vaccines (1 - 3-dose SCD M series) 07/24/2023 COVID-19 Vaccine ( - 2024-2 6 season) 2024 Influenza Adult (#1) 2024 Hepatitis A Vaccines Aged Out No long er eligible based on patient's age to complete this topic Meningococcal B Vaccine Aged Out No l onger eligible based on patient's age to complete this topic Meningococcal Vaccine Aged Out No connie alex eligible based on patient's age to complete this topic Pneumococcal Vaccine: Pediat rics (0 to 5 Years) and At-Risk Patients (6 to 49 Years) Aged Out No longer eligible b ased on patient's age to complete this topic RSV Immunizations Under 20 Months Aged Out No longer eligible based on patient's age to complete this topic
--- OUTSIDE RECORDS SUMMARY | 2025-01-20 15:05 | XMS_ITS | Clinical Summary ---
Author Organization [facility] Address [address] [place] [id number] Care Team Providers Care Vaccine Specialist Name Role Phone Unavailable Primary Care Provider Unavailabl e Social History Tobacco Use Types Packs/Day Years Used Date Smoking Tobacco: Never Assessed Sex and Gender Information Value Date Recorded Sex Assigned at Not on file Legal Sex Male 2:43 PM CDT Gender Identity Not on file Sexual Orientation Not on file Last Filed Vital Signs Vital Sign Reading Time Taken Comments Blood Pressure 141/76 07/03/2024 5:20 PM CDT Pulse 93 07/03/2024 5:50 PM CDT Temperature 37.1 C (98.7 F) 07/03/2024 4:46 PM CDT Respiratory Rate 25 07/03/2024 2:43 PM CDT Oxygen Saturation 96% 07/03/2024 5:50 PM CDT Inhaled Oxygen Concentration - - Weight 77.1 kg (170 lb) 07/03/2024 2:43 PM CDT Height 175.3 cm (5' 9) 07/03/2024 2:43 PM CDT Body Mass Index 25.1 07/03/2024 2:43 PM CDT Plan of Treatment Health Maintenance Due Date Last Done Comments HIV Screening 1996 Hepatitis C Screening ages 18 to 79 once 1996 MMR VACCINES (1 of 1 - Standard series) 1997 YEARLY WELLNESS EXAM 07/24/1999 Varicella Vaccine (2 of 2 - 2-dose childhood series) 2000 09/08/1997 DEPRESSION SCREENING 2008 HPV VACCINES (1 - Male 3-dose series) 07/24/2011 BMI Above/Below Normal Parameters 2014 HEPATITIS B VACCINES (1 of 3 - 19+ 3-dose series) 07/24/2015 Influenza Vaccine 10/15/2024 COVID-19 Immunization ( - 2024-25 season) 2024 ADULT TETANUS 05/24/2034 05/24/2024, 10/23/2011 DTaP/Tdap/Td Vaccines (5 - Td or Tdap) 05/24/2034 05/24/2024, 03/16/2019, 10/23/2011, Additional history exists Zoster Vaccine (Recombinant Vaccine) (1 of 2) 2046 HEPATITIS A VACCINES Aged Out No long er eligible based on patient's age to complete this topic HIB VACCINES Aged Out No longer eligi ble based on patient's age to complete this topic IPV VACCINES Aged Out No longer eligi ble based on patient's age to complete this topic MENINGOCOCCAL VACCINE Aged Out No connie alex eligible based on patient's age to complete this topic Meningococcal B Vaccine Aged Out No l onger eligible based on patient's age to complete this topic Pneumococcal Vaccine: Peds to 50 & At-Risk Patients Aged Out No longer eligi ble based on patient's age to complete this topic ROTAVIRUS VACCINES Aged Out No longer eligible based on patient's age to complete this topic Insurance [facility]
--- OUTSIDE RECORDS SUMMARY | 2025-01-20 15:05 | XMS_ITS | Encounter Summary ---
Author Organization [facility] Healthcare Address [address] [place] [address] Care Team Providers Care Wholesale Diamond Broker Name Role Phone Murtaza NORMAN MD, Robert E. Primary Care Provider + Anderson Roche MD Unavailable [phone] Murtaza NORMAN MD, Robert E. Unavailable [phone] Murtaza NORMAN MD, Robert E. Primary Care Provider + Giovanni Best MD Primary Care Provider Encounter Details Date Type Department Care Team (Late st Contact Info) Description 10/28/2019 Telephone [facility] [place] [id number] Yary Brink RT Social History Tobacco Use Types Packs/Day Years Used Date Smoking Tobacco: Every Day Cigarettes 0.5 4 Alcohol Use Standard Drinks/Week Comments Yes 0 (1 standard drink = 0.6 oz pure alcohol) drinks between 4-8 alcoholic beverages per day AUDIT-C Answer Date Recorded Frequency of Alcohol Consumption 4 or more times a week 03/16/2019 Average Number of Drinks 3 or 4 019 Frequency of Binge Drinking Not on file 02/16 Sex and Gender Information Value Date Recorded Sex Assigned at Not on file Legal Sex Male 12:38 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 Gender Identity Not on file Sexual Orientation Not on file documented as of this encounter Functional Status * Question Answer Date of Assessment Author MAP (mmHg) 98 10/31/2019 1:00 PM Cheryl Oates RN * Question Answer Date of Assessment Author BP Location Right arm 10/31/2019 1:00 PM Cheryl Oates RN BP Method Automatic 10/31/2019 1:00 PM Cheryl Oates RN * Question Answer Date of Assessment Author Auto Low/High - if selected proceed to interventions (retired) High risk-visit due to a fall or hx of > 1 fall in past 3 months 10/31/2019 7:00 AM Cheryl White RN Amaral Fall Risk Score (Score >= 45 places fall precaution order) 50 10/31/2019 7:00 AM Cheryl White RN * Fall Risk Interventions Question Answer Date of Assessment Author All Low Fall Interventions Applied Yes 10/31/2019 7:00 AM Cheryl White RN All Moderate Fall Interventions Applied Yes 10/31/2019 7:00 AM Cheryl White RN All High Fall Risk Interventions Applied Yes 10/31/2019 7:00 AM Cheryl White RN Additional Interventions Applied Constant observation 10/31/2019 7:00 AM Cheryl White RN * B.M.A.T. - Bedside Mobility Assessment Tool for Nurses Question Answer Date of Assessment Author Is patient able to participate in the BMAT? Yes 10/30/2019 10:00 PM Evy Mak RN BMAT Level Level 4 - Green 10/30/2019 10:00 PM KATHIET Nuria Taylor RN * Pressure Injury Prevention Question Answer Date of Assessment Author Pressure Ulcer Prevention Interventions Keep skin clean and dry (Sensory Perception/Moisture ) 10/31/2019 7:45 AM Cheryl White RN * Integumentary Question Answer Date of Assessment Author Skin Color Appropriate for ethnicity 10/31/2019 7:45 AM Cheryl White RN Skin Condition/Temp Warm 10/31/2019 7:45 AM Cheryl Cerna RN Skin Integrity Intact 10/31/2019 7:45 AM KATHIET Sti Cheryl jane RN Integumentary (WDL) X 10/31/2019 7:45 AM CD T Stillpass, Cheryl, RN Skin Location L Bicep bruising 10/31/2019 7:45 AM KATHIET Cheryl Washington RN * Question Answer Date of Assessment Author Special Mattress Rotation with altern ating pressure relief and low air loss 10/30/2019 10:00 PM KATHIET Nuria Silverio RN * Question Answer Date of Assessment Author BP Location Right arm 10/31/2019 1:00 PM Cheryl Oates RN BP Method Automatic 10/31/2019 1:00 PM Cheryl Oates RN * Question Answer Date of Assessment Author Percent Snack Eaten (%) 100 10/31/2019 10:00 AM Cheryl White RN * Question Answer Date of Assessment Author Bed In Lowest Position Yes 10/31/2019 12:00 P M Cheryl White RN Bed Wheels Locked Yes 10/31/2019 12:00 PM Cheryl White RN * Fall Risk Interventions Question Answer Date of Assessment Author All Low Fall Interventions Applied Yes 10/31/2019 7:00 AM Cheryl White RN All Moderate Fall Interventions Applied Yes 10/31/2019 7:00 AM Cheryl White RN All High Fall Risk Interventions Applied Yes 10/31/2019 7:00 AM Cheryl White RN Additional Interventions Applied Constant observation 10/31/2019 7:00 AM Cheryl White RN * Question Answer Date of Assessment Author Hygiene Patient refused 10/31/2019 10:00 AM CDT Mimi Ceja RN * ADL Screening Question Answer Date of Assessment Author Patient's Vision Adequate to Safely Complete Daily Activities Yes 10/30/2019 11:49 PM KATHIET Nuria Silverio RN Patient's Judgement Adequate to Safely Complete Daily Activities Yes 10/30/2019 11:49 PM KATHIET Nuria Silverio RN Patient's Memory Adequate to Safely Complete Daily Activities Yes 10/30/2019 11:49 PM CDT Nuria Silverio RN Patient Able to Express Needs/Desires Yes 10/30/2019 11:49 PM KATHIET Nuria Silverio RN Dressing Independent 10/30/2019 11:49 PM CDT Nuria Hummel RN Grooming Independent 10/30/2019 11:49 PM CDT Nuria Hummel RN Feeding Independent 10/30/2019 11:49 PM KATHIET Nuria Hummel RN Bathing Independent 10/30/2019 11:49 PM KATHIET Nuria Hummel RN Toileting Independent 10/30/2019 11:49 PM KATHIET Nuria Hummel RN In/Out Bed Independent 10/30/2019 11:49 PM KATHIET Nuria Hummel RN Walks in Home Independent 10/30/2019 11:49 PM KATHIET Nuria Moreno RN Weakness of Legs None 10/30/2019 11:49 PM KATHIET Nuria Silverio RN Weakness of Arms/Hands None 10/30/2019 11:49 P M KATHIET Nuria Silverio RN Hearing - Right Ear Functional 10/30/2019 11:49 PM C DT Nuria Silverio RN Hearing - Left Ear Functional 10/30/2019 11:49 PM CD T Nuria Silverio RN Dominant hand? Right 10/30/2019 11:49 PM CDT Nuria Charles RN Decline in ADLs in last 2 weeks? No 10/30/2019 11:49 PM KATHIET Nuria Silverio RN * Therapy Consults Question Answer Date of Assessment Author PT Evaluation Needed 2 10/30/2019 11:49 PM Nuria Mak RN OT Evaluation Needed 2 10/30/2019 11:49 PM Nuria Mak RN GIS SOFTWARE ENGINEER Evaluation Needed 2 10/30/2019 11:49 PM KATHIET Nuria Silverio RN * Assistive Devices Question Answer Date of Assessment Author Assistive Devices/DME None 10/30/2019 11:49 PM Nuria Mak RN documented as of this encounter Mental Status * Question Answer Entry Date Author Level of Consciousness Alert;Awake 0 12:00 PM Cheryl White RN Orientation Oriented to person;Oriented to place;Oriented to situation 10/31/2019 12:00 PM Cheryl White RN * Question Answer Entry Date Author Neuro (WDL) X 10/31/2019 7:45 AM Cheryl Oates RN documented in this encounter Plan of Treatment Not on file documented as of this encounter Visit Diagnoses Not on filedocumented in this encounter Additional Health Concerns Infection Onset Date Last Indicated Resolved Time MRSA 11/01/2023 11/01/2023 04/29/2024 3:05 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 Ring Surveillance 11/05/2023 11/05/2023 11/12/2023 3:05 AM CDT COVID: Suspected 04/14/2024 04/14/2024 04/14/2024 12:41 PM ENAMEL SPRAYER documented as of this encounter Care Teams Wholesale Diamond Broker Relationship Specialty Start Date End Date Joel Hauser III, MD [address] [place] [address] PCP - General 06/19/19 11/14/19 Joel Hauser III, MD [address] [place] [address] PCP - General 11/15/19 05/24/24 Giovanni Best MD [address] [facility] [id number] [place] [address] PCP - General Internal Medicine 05/25/24 Anderson Roche MD [address] [place] [address] Referring Physician Pediatric Neurosurgery 11/13/19 Joel Hauser III, MD [address] [facility], [address] [address] Neurologist Neurology 11/15/19 documented as of this encounter
--- OUTSIDE RECORDS SUMMARY | 2025-01-20 15:05 | XMS_ITS | Clinical Summary ---
Author Organization [facility] Address [address] [place] [address] Care Team Providers Care Window/Distribution Clerk Name Role Phone Anderson Roche MD Unavailable Murtaza NORMAN MD, Joel Aldridge Unavailable [phone] Giovanni Best MD Primary Care Provider Allergies Active Allergy Reactions Criticality Noted Date Comments Phenytoin Rash Medium Administered with antibiotiic Medications levETIRAcetam (KEPPRA) 750 mg tablet Take 2 tablets (1,500 mg total) by mouth every 12 (twelve) hours 360 tablet 3 08/03/2024 Active Active Problems Problem Noted Date Diagnosed Date Alcohol use disorder 05/24/2024 Overview (05/24/2024): Patient drinks about 2 standard drinks daily and is not interested in quitting. Assessment & Plan (05/24/2024 4:07 PM CDT): -- Discussed caution with drinking alcohol and taking his Keppra medication, but patient is not interested in cessation at this time. -- CMP ordered. Migraine without aura 05/24/2024 Overview (05/24/2024): Has been getting migraines that originate from his surgery site since his lobectomy in 10/2019. Resolves with tylenol. Assessment & Plan (05/24/2024 4:11 PM CDT): -- Continue Tylenol -- Follow-up with neurology Healthcare maintenance 05/23/2024 Overview (05/24/2024): General - A1c: N/A - Lipids: At age 46 - AAA: N/A Cancer - Colonoscopy (age 50-75): At age 51 - Lung: N/A Infectious Disease - HIV: 10/2023 NR - HBV: N/A - HCV: Due - Syphilis: 10/2023 NR Immunizations - Influenza: Due - COVID: Due - Td/Tdap: 10/2011 Due - PCV20: at age 66 - Shingles: at age 61 - HAV: N/A - HBV: Completed 06/2007 - Meningococcus: 02/2015 Assessment & Plan (05/24/2024 4:08 PM CDT): -- Tdap given today -- CMP, HCV, and lipid panel ordered today. Status epilepticus 04/13/2024 Seizure 11/01/2023 Status post lobectomy of brain 11/11/2019 Assessment & Plan (11/13/2019 10:14 AM CDT): 24 yr old male s/p right temporal lobectomy 11/10 -MRI post surgery with expected post op changes -monitor neuro status eamon speech Assessment & Plan (11/12/2019 5:00 PM CDT): 24 yr old male s/p right temporal lobectomy -post op day 1 -MRI post surgery with expected post op changes -monitor neuro status eamon speech Postoperative pain 11/11/2019 Assessment & Plan (11/13/2019 10:15 AM CDT): 24 yr old male s/p right temporal lobectomy -sched acetaminophen x 48 hours (11/10-11/12) then PRN -oxycodone PRN incision pain Assessment & Plan (11/12/2019 4:59 PM CDT): 24 yr old male s/p right temporal lobectomy -sched acetaminophen and ibuprofen x 48 hours then PRN -IV dilaudid and oxycodone PRN incision pain Memory change 07/08/2019 Partial epilepsy with impair ment of consciousness, intractable 04/21/2019 Assessment & Plan (11/13/2019 10:14 AM CDT): 24 yr old male with intractable epilepsy s/p Left anterior temporal lobectomy -VS Q4H and neuro checks -mIVF- to saline lock when sergey po -pain management- acetaminophen scheduled for 48 hours (11/10-11/12) then PRN oxycodone; dc dilaudid 11/12 (N/V) -No toradol or ibuprofen -cont home AED's - LVT 1500 BID/Carbamazepine 600 BID -rescue CLZ 2 mg po -Ativan 4 mg IV GTC> 5 min Assessment & Plan (11/12/2019 4:58 PM CDT): 24 yr old male with intractable epilepsy s/p Left anterior temporal lobectomy -VS Q4H and neuro checks -mIVF- to saline lock when sergey po -pain management- acetaminophen/ibuprofen scheduled for 48 hours then PRN and oxycodone/ dilaudid PRN -cont home AED's - LVT 1500 BID/Carbamazepine 600 BID -rescue CLZ 2 mg po -Ativan 4 mg IV GTC> 5 min Seizures Overview (05/24/2024): 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 Assessment & Plan (05/24/2024 4:10 PM CDT): -- Another referral to neurology sent today. Provided patient with phone number as well. -- Continue with Keppra 1500 mg BID. 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 Toxic metabolic encephalopathy 03/18/2019 Metabolic acidosis 0 Immunizations Immunization Administration Dates Next Due DTaP 03/16/2019,11/06/2001 DTaP, Unspecified 08/16/2000,01/19/1997,11/25/18 97,1996 Hep B, Unspecified 07/14/2007,1996, 997 IPV 11/06/2001 MMR 11/06/2001,08/16/2000,07/25/1997 Meningococcal MCV4P (Menactra) 02/22/2015 Polio, Unspecified 08/16/2000,1996, 997 Tdap 05/24/2024,10/23/2011 Varicella 09/08/1997 Surgical History Surgery Date Site/Laterality Comments LOBECTOMY Left Medical History Medical History Date Comments Seizures (HCC) Alcohol use disorder Family History Medical History Relation Name Comments Depression Brother Insomnia Brother Valvular heart disease Father Relation Name Status Comments Brother Father Social History Tobacco Use Types Packs/Day Years Used Date Smoking Tobacco: Former Cigarettes 0.5 4 S tarted: 02/2020 Vaping Tobacco Cessation:Counseling Given: Not Answered Alcohol Use Standard Drinks/Week Comments Yes 2 (1 standard drink = 0.6 oz pure alcohol) drinks between 1-3 alcoholic beverages per day AUDIT-C Answer Date Recorded Q1: How often do you have a drink containing alcohol? 4 or more times a week 08/03/2024 Q2: How many drinks containi ng alcohol do you have on a typical day when you are drinking? 1 or 2 Q3: How often do you have si x or more drinks on one occasion? Less than monthly 08/03/2024 Hunger Vital Sign Answer Date Recorded Within the past 12 months, y ou worried that your food would run out before you got the money to buy more. Never true 08/04/19 Within the past 12 months, t he food you bought just didn't last and you didn't have money to get more. Never true 08/03/2024 Personal Safety Answer Date Recorded Have you ever been in or are you currently in a harmful physical or emotional relationship or is someone making you feel afraid or unsafe? 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 Gender Identity Not on file Sexual Orientation Not on file Last Filed Vital Signs Vital Sign Reading Time Taken Comments Blood Pressure 148/108 08/03/2024 2:15 PM CDT Pulse 78 08/03/2024 2:15 PM CDT Temperature 36.2 C (97.2 F) 08/03/2024 2:15 PM CDT Respiratory Rate 16 08/03/2024 2:15 PM CDT Oxygen Saturation 99% 08/03/2024 2:15 PM CDT Inhaled Oxygen Concentration - - Weight 79.5 kg (175 lb 3.2 oz) 08/03/2024 2:15 P M CDT Height 172.7 cm (5' 8) 05/24/2024 3:12 PM CDT Body Mass Index 26.64 05/24/2024 3:12 PM CDT Plan of Treatment Health Maintenance Due Date Last Done Comments Depression Screening 1996 Varicella Vaccines (2 of 2 - 2-dose childhood series) 12/04/2001 09/08/1997 Regular Well Visit/Exam 18-64 2014 HPV Vaccines (1 - 3-dose SCDM series) 07/24/2023 Influenza Vaccine (#1) 2024 DTaP/Tdap/Td Vaccine (9 - Td or Tdap) 05/24/2034 05/24/2024, 03/16/2019, 10/23/2011, Additional history exists Hepatitis B Screening Completed 07/14/2007 , 1996, 1996 Hepatitis C Screening Completed 05/24/2024 Pneumococcal vaccine <65 Aged Out No longer eligible based on patient's age to complete this topic Medical Devices Implanted Type Area Embedded Hardware Engineer Device Identifier Shelf Expiration Date Model / Serial / Lot Guide Rock Craniomaxillofacial [id number] Medpor 7mm Tab Low Profile Cover Tariq Hole Titanium Sterile - [id number] Implanted:Qty: 2 on 11/11/2019 by Zander Marrero MD at [facility] Left: Cranial Guide Rock Craniomaxillofacial [id number] / / Guide Rock Craniomaxillofacial [id number] [place] [employer] Iii .4mm 2 Hole Low Profile Bar Tab - [id number] Implanted:Qty: 1 on 11/11/2019 by Zander Marrero MD at [facility] Left: Cranial Guide Rock Craniomaxillofacial [id number] / / Guide Rock Craniomaxillofacial [id number] [employer] [employer] 3 1.5mm 4mm Self Drill Axial Stability Screw Bone Latex Free - [id number] Implanted:Qty: 10 on 11/11/2019 by Zander Marrero MD at [facility] Left: Cranial Justine Craniomaxillofacial [id number] / / Procedures Procedure Name Priority Date/Time Associated Diagnosis Comments HEPATITIS C RNA, QUANTITATIVE, PCR Routine 05/24/2024 4:09 PM CDT Healthcare maintenance from Last 3 Months or Most Recently Relevant to Health Maintenance Results * Hepatitis C (HCV) RNA PCR, quantitative Blood (05/24/2024 4:09 PM CDT) [facility] HCV RNA result Not Detected [facility] Comment: The quantifiable range of this assay is 15 IU/mL to 100,000,000 IU/mL (1.18 log IU/mL to 8.00 log IU/mL). Testing was performed by the TOMMY 6800 HCV Test ([employer] Testing performed at [facility] Current Interpretive Data was last revised on 2020 Blood 05/24/2024 4:09 PM CDT 05/24/2024 5:27 PM CDT Giovanni Best MD LAB MICROBIOLOGY - GENE RAL ORDERABLES Final Result ERAN [facility] [place] [address] [facility] from Last 3 Months or Most Recently Relevant to Health Maintenance Insurance [facility] Advance Directives For more information, please contact: [phone] Documents on File Type Date Recorded Patient Manager Shop Expl anation ADVANCE DIRECTIVE 11/11/2019 8:30 AM ADVANCE DIRECTIVE 11/10/2019 2:28 PM * Full Code (Latest Code Status on File) Date Activated Date Inactivated Comments 04/13/2024 9:24 PM 04/16/2024 10:34 PM * Full Code Date Activated Date Inactivated Comments 11/01/2023 1:50 AM 11/06/2023 7:12 PM * Full Code Date Activated Date Inactivated Comments 11/11/2019 6:01 PM 11/13/2019 9:01 PM * Full Code Date Activated Date Inactivated Comments 10/30/2019 9:08 PM 10/31/2019 6:36 PM * Full Code Date Activated Date Inactivated Comments 05/05/2019 10:41 AM 05/11/2019 9:20 PM Care Teams Window/Distribution Clerk Relationship Specialty Start Date End Date Giovanni Best MD [address] [facility] [id number] [place] [address] PCP - General Internal Medicine 05/25/24 Anderson Roche MD Referring Physician Pediatric Neurosurgery 11/13/19 Joel Hauser III, MD [address] [facility] EPILEPSY, [address] [address] Neurologist Neurology 11/15/19
== END 2025-01-19 17:10 | disposition left against medical advice (07) ==
LOC: ANHED 17:07
DX: R29.0 Tetany (principal)
CPT/HCPCS: 99199